=== PATIENT | female | born 1985 | race Caucasian/White ===

== ENCOUNTER 2024-05-03 12:41 | Emergency (ER) | payer BC, MEDICAID ==
[~2024-05-03] VITALS: Ht 162.6 cm; Wt 81.6 kg
[2024-05-03 12:59] VITALS: BP 130/70; PULSE 75; RESP 16; TEMP 98.1; O2SAT 98
[2024-05-03] MEDS ORDERED: DICL100G32 TP (14:17)
[2024-05-03] MEDS ORDERED: IBUP-2213 PO (14:17)
== END 2024-05-03 14:41 | disposition home or self-care (01) ==
LOC: MED 12:41
DX: S43.401A Unspecified sprain of right shoulder joint, initial encounter (principal); G56.01 Carpal tunnel syndrome, right upper limb; K21.9 Gastro-esophageal reflux disease without esophagitis; Z79.899 Other long term (current) drug therapy; X58.XXXA Exposure to other specified factors, initial encounter; Y93.89 Activity, other specified; Y92.89 Other specified places as the place of occurrence of the external cause; Y99.8 Other external cause status
CPT/HCPCS: 73030; 81025; 99283